=== PATIENT | male | born 1960 | race Caucasian/White ===

== ENCOUNTER → 2021-04-20 09:33 | Outpatient (BNVA) | payer MEDICARE, SELFPAY | PROVIDERS: PCP Emergency Medicine; Visit Provider Internal Medicine | DX: M25.50 Pain in unspecified joint (principal); R53.83 Other fatigue; D86.9 Sarcoidosis, unspecified; R76.8 Other specified abnormal immunological findings in serum; Z11.59 Encounter for screening for other viral diseases; L40.9 Psoriasis, unspecified; M19.042 Primary osteoarthritis, left hand; M19.041 Primary osteoarthritis, right hand; M46.1 Sacroiliitis, not elsewhere classified | CPT/HCPCS: 36415; 72202; 73120; 73620; 80053; 82164; 82306; 82550; 82607; 82728; 83516; 83540; 84403; 84439; 84443; 84550; 85025; 85651; 86140; 86160; 86162; 86200; 86235; 86255; 86376; 86704; 86803; 87340; 99204 ==

== ENCOUNTER 2021-04-20 11:22 | Outpatient (CLI) | payer MEDICARE, SELFPAY ==
--- NOTE | 2021-04-20 11:53 | XR_ITS ---
WS: [email or web address] Right hand, 2 views, 04/20/2021 Clinical Data: D86.9 - Sarcoidosis, unspecified Comparison: None. Findings: No fractures or dislocations are seen. The soft tissues are unremarkable. There is minima l osteoarthritis of the right first IP joint and left fifth PIP joint.No periarticular demineralizati on or calcifications are seen. 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
--- NOTE | 2021-04-20 11:53 | XR_ITS ---
WS: [email or web address] Left foot, 2 views, 04/20/2021 Clinical Data: M25.50 - Pain in unspecified joint Comparison: None. Findings: No fractures or dislocations are seen. No bone destruction or erosion is noted. The joint spaces and soft tissues are normal. No periarticular demineralization or calcifications are seen. XR/XR foot LT 2V [id number] Impression: Negative left foot.
--- NOTE | 2021-04-20 11:53 | XR_ITS ---
WS: [email or web address] Right foot, 2 views, 04/20/2021 Clinical Data: M25.50 - Pain in unspecified joint Comparison: None. Findings: No fractures or dislocations are seen. No bone destruction or erosion is noted. The joint spaces and soft tissues are normal. No periarticular demineralization or calcifications are seen. There is an Achilles spur. XR/XR foot RT 2V [id number] Impression: Negative right foot.
--- NOTE | 2021-04-20 11:53 | XR_ITS ---
WS: [email or web address] SI JOINTS TECHNIQUE: 3 views of the sacroiliac joints CLINICAL INFORMATION: L40.9 - Psoriasis, unspecified COMPARISON: None. FINDINGS: Mild degenerative arthritis both sacroiliac joints with slight periarticular sclerosis. No significan t erosive changes. Postoperative changes lower lumbar spine extending to S1. Disc space narrowing L5- S1. XR/XR sacroiliac jts m 3V [id number] IMPRESSION: Mild degenerative arthritis both sacroiliac joints with slight periarticular sc lerosis. No significant erosive changes.
--- NOTE | 2021-04-20 11:53 | XR_ITS ---
WS: [email or web address] Left hand, 2 views, 04/20/2021 Clinical Data: D86.9 - Sarcoidosis, unspecified Comparison: None. Findings: No fractures or dislocations are seen. The soft tissues are unremarkable. The joint spaces are normal except for osteoarthritis of the left fifth PIP joint and left first IP joint. There is deformity of the left fifth metacarpal from an old injury. No periarticular demineralization or calcifications are seen. XR/XR hand LT 2V [id number] Impression: 1. Osteoarthritis of the left fifth PIP joint and left first IP joint. 2. Probable old left fifth metacarpal fracture.
[2021-04-20 12:45] LABS: Basophils # 0.1 10^3/uL (0.0-0.1); Basophils % 0.8 %; Eosinophils # 0.4 10^3/uL (0.0-0.8); Eosinophils % 3.2 %; Hematocrit 41.5 % (42.0-52.0); Hemoglobin 14.1 g/dL (11.7-16.6); Lymphocytes # 1.1 10^3/uL (0.8-4.8); Lymphocytes % 9.6 %; Mean Corpuscular Hemoglobin 28.7 pg (28.0-34.0); Mean Corpuscular Volume 84.3 fl (80-94); Mean Platelet Volume 10.1 fL (7.4-10.4); Monocytes # 0.9 10^3/uL (0.2-0.9); Monocytes % 7.7 %; Neutrophils # 9.07 10^3/uL (1.8-7.7); Neutrophils % 78.1 %; Nucleated Red Blood Cells % 0 %; Platelet Count 213 10^3/cmm (130-400); Red Blood Count 4.92 10^6/uL (4.1-5.3); Red Cell Distribution Width 12.6 % (12.1-15.1); White Blood Count 11.6 10^3/uL (4.0-10.0)
[2021-04-20 13:09] LABS: Erythrocyte Sedimentation Rate 9 mm/hr (0-10)
[2021-04-20 13:18] LABS: Alanine Aminotransferase 26 U/L (0-41); Albumin Level 4.3 g/dL (3.5-5.2); Alkaline Phosphatase 138 IU/L (40-130); Anion Gap 19.5 (5-19); Aspartate Amino Transferase 18 U/L (0-40); Blood Urea Nitrogen 27 mg/dL (8-23); C Reactive Protein 1.6 mg/L (0.0-4.9); Calcium 9.1 mg/dL (8.5-10.5); Carbon Dioxide 22 mmol/L (22-29); Chloride 100 mmol/L (98-107); Creatine Phosphokinase 177 U/L (39-308); Free T4 Free Thyroxine 1.11 ng/dL (0.82-1.77); Glomerular Filtration Rate 67.6 mL/min (90-130); Glucose 312 mg/dL (65-115); Osmolality Calculated 301 mOsm/kg (285-295); Potassium 4.5 mmol/L (3.5-5.1); Sodium 137 mmol/L (136-145); Testosterone Total 202.1 ng/dL (193-740); Thyroid Stimulating Hormone 2.12 uIU/mL (0.27-4.20); Total Bilirubin 0.4 mg/dL (0.15-1.2); Total Protein 6.3 g/dL (6.6-8.7); Uric Acid 5.4 mg/dL (3.4-7.0)
[2021-04-20 13:59] LABS: 25 Hydroxy Vitamin D 14 ng/mL (30-100); Ferritin 118 ng/mL (30-400); Iron 72 ug/dL (59-158); Vitamin B12 721 pg/mL (232-1245)
[2021-04-20 14:43] LABS: Hepatitis B Core AB, Total Non-Reactive (Nonreactive); Hepatitis B Surface Antigen Non-Reactive (Nonreactive); Hepatitis C Virus Antibody Non-Reactive (Nonreactive)
[2021-04-21 12:29] LABS: Angiotensin Converting Enzyme 40 U/L (9-67); COMPLEMENT COMPONENT C3C 158 mg/dL (82-185); COMPLEMENT COMPONENT C4C 37 mg/dL (15-53)
[2021-04-22 11:57] LABS: CENTROMERE B ANTIBODY <1.0 NEG AI (<1.0 NEG); JO-1 ANTIBODY <1.0 NEG AI (<1.0 NEG); RNP ANTIBODY <1.0 NEG AI (<1.0 NEG); SCL-70 ANTIBODY <1.0 NEG AI (<1.0 NEG); SJOGREN'S ANTIBODY (SS-A) <1.0 NEG AI (<1.0 NEG); SM ANTIBODY <1.0 NEG AI (<1.0 NEG); SS-B <1.0 NEG AI (<1.0 NEG)
[2021-04-22 13:04] LABS: COMPLEMENT, TOTAL (CH50) >60 U/mL (31-60)
[2021-04-22 14:07] LABS: Cyclic Citrullinated Peptide <16 UNITS
[2021-04-22 14:18] LABS: THYROID PEROXIDASE ANTIBODIES 1 IU/mL (<9)
[2021-04-23 08:22] LABS: ANA SCREEN, IFA POSITIVE (NEGATIVE)
[2021-04-24 10:37] LABS: DNA AB (DS) CRITHIDIA,IFA NEGATIVE (NEGATIVE)
== END 2021-04-20 11:23 | disposition home or self-care (01) ==
LOC: RAD 11:51
PROVIDERS: PCP Emergency Medicine; Visit Provider Internal Medicine
DX: M25.50 Pain in unspecified joint (principal); D86.9 Sarcoidosis, unspecified; L40.9 Psoriasis, unspecified; M19.042 Primary osteoarthritis, left hand; M19.041 Primary osteoarthritis, right hand; M46.1 Sacroiliitis, not elsewhere classified; Z11.59 Encounter for screening for other viral diseases
CPT/HCPCS: 36415; 72202; 73120; 73620; 80053; 82164; 82306; 82550; 82607; 82728; 83516; 83540; 84403; 84439; 84443; 84550; 85025; 85651; 86140; 86160; 86162; 86200; 86235; 86255; 86376; 86704; 86803; 87340

== ENCOUNTER → 2021-05-13 09:44 | Outpatient (BNVA) | payer MEDICARE, SELFPAY | PROVIDERS: PCP Emergency Medicine; Visit Provider Internal Medicine | DX: R76.8 Other specified abnormal immunological findings in serum (principal); E55.9 Vitamin D deficiency, unspecified; M53.3 Sacrococcygeal disorders, not elsewhere classified; M19.90 Unspecified osteoarthritis, unspecified site; M79.672 Pain in left foot | CPT/HCPCS: 99214 ==

== ENCOUNTER → 2021-06-16 15:17 | Outpatient (BNVA) | payer MEDICARE, SELFPAY | PROVIDERS: PCP Emergency Medicine; Visit Provider Internal Medicine | DX: R76.8 Other specified abnormal immunological findings in serum (principal); M53.3 Sacrococcygeal disorders, not elsewhere classified; M19.90 Unspecified osteoarthritis, unspecified site; D86.9 Sarcoidosis, unspecified; E11.9 Type 2 diabetes mellitus without complications; Z79.4 Long term (current) use of insulin | CPT/HCPCS: 99214 ==